=== PATIENT | female | born 1995 | race Caucasian/White ===

== ENCOUNTER 2024-03-04 08:44 | Emergency (ER) | payer OTHER, SELFPAY ==
[2024-03-04] VITALS (20 sets, daily range): BP systolic 94–114; BP diastolic 63–88; PULSE 64–89; RESP 14–24; TEMP 36.6–36.9; O2SAT 97–100
--- NOTE | ~2024-03-04 | CT_ITS ---
CTA brain carotid Ordering provider: Chiquis Blank PA-C History: . headache, dizziness . Comparison: March 04, 2024 Technique: CT angiogram head and neck was performed following timed intravenous injection of contrast . Thin slice axial images and reformatted coronal images were obtained. Three dimensional reformatted images of the brain were also obtained using a [employer] workstation. Radiation reduction technique ut ilized.The dose-length product was 998.68 mGy-cm. 100 mL Omnipaque 350 was given IV. FINDINGS: HEAD: The left transverse venous sinuses demonstrated which may be congenitally absent or thrombosed. --ANTERIOR AND MIDDLE CEREBRAL ARTERIES AND BRANCHES: Normal caliber and contour. --INTERNAL CAROTID ARTERIES: Normal caliber and contour. --BASILAR ARTERY AND BRANCHES: Normal caliber and contour. No atheromatous disease. Dominant left harry tebral artery. Markedly attenuated right vertebral artery. --POSTERIOR CEREBRAL ARTERIES: Normal caliber and contour --POSTERIOR COMMUNICATING ARTERIES: The left continues as posterior cerebral artery. 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 --ANEURYSM: None visualized. --BRAIN: Please refer to report of CT head performed the same day. --BONES AND SUPERFICIAL SOFT TISSUES: Please refer to report of CT head performed the same day. --PARANASAL SINUSES AND MASTOIDS: Please refer to report of CT head done the same day. NECK: --RIGHT CERVICAL CAROTID SYSTEM: Normal caliber and contour. Percent stenosis per NASCET criteria is 0%. No carotid dissection. Otherwise, no significant atheromatous disease or stenosis of the cervica l carotid system. --LEFT CERVICAL CAROTID SYSTEM: Normal caliber and contour. Percent stenosis per NASCET criteria is 0%. No carotid dissection. Otherwise, no significant atheromatous disease or stenosis of the cervical carotid system. --VERTEBRAL ARTERIES: Normal caliber and contour. --VISUALIZED AORTIC ARCH AND BRANCHING VESSELS: Normal caliber and contour. No significant atheromato us disease. --SOFT TISSUES: Bilateral submandibular and parapharyngeal slightly enlarged lymph nodes --CERVICAL SPINE: Normal. IMPRESSION: 1. Normal CTA head and neck. Percent stenosis per NASCET criteria is 0%. 2. The left transverse venous sinus is not demonstrated which may be thrombosed or congenitally abse nt. Reviewed, dictated and finalized at location A. IMPRESSION: 1. Normal CTA head and neck. Percent stenosis per NASCET criteria is 0%. 2. The left transverse venous sinus is not demonstrated which may be thrombose d or congenitally absent.
--- NOTE | ~2024-03-04 | CT_ITS ---
Non-contrast Head CT History: Headache Technique: Axial non-contrast imaging of the brain was performed. Dose reduction technique was used on this scan by utilizing automated exposure control and iterative reconstruction technique. The dose -length product (DLP) was 681.00 mGy-cm. Findings: There is no evidence of intracranial hemorrhage, mass lesion, or acute infarct. Brain par enchyma appears normal. The ventricles and subarachnoid spaces are normal in size. The calvarium ap pears normal. The visualized paranasal sinuses and mastoid air cells are clear. Impression: No significant abnormality seen. Reviewed, dictated and finalized at location . Impression: No significant abnormality seen.
--- NOTE | 2024-03-04 09:26 | ECG_ITS ---
Test Date: 2024-03-04 10:08:58 Measurements Intervals [place] Rate: 70 P: 48 GA: 161 QRS: -8 QRSD: 90 T: 7 QT: 366 QTc: 395 Interpretive Statements SINUS RHYTHM POSSIBLE LEFT ATRIAL ENLARGEMENT INCOMPLETE RIGHT BUNDLE BRANCH BLOCK LOW QRS VOLTAGE IN PRECORDIAL LEADS CONSIDER INFERIOR INFARCT, AGE INDETERMINATE ABNORMAL ECG No previous ECG available for comparison Electronically Signed On 03-04-2024 11:06:27 CDT by Marino Lagos D.O.
--- NOTE | 2024-03-04 09:28 | ED.HA ---
HPI - Headache General Chief Complaint: Headache <SANDEE Mckeon Last Filed: 03/05/24 09:26> Stated Complaint: migraine <SANDEE Mckeon Last Filed: 03/05/24 09:26> Time Seen by Provider: 03/04/24 09:07 <SANDEE Mckeon Last Filed: 03/05/24 09:26> Source: patient <SANDEE Mckeon Last Filed: 03/05/24 09:26> Mode of arrival: ambulatory <SANDEE Mckeon Last Filed: 03/05/24 09:26> Limitations: no limitations <SANDEE Mckeon Last Filed: 03/05/24 09:26> History of Present Illness HPI Narrative: This is a 28-year-old female that presents to the emergency department for a headache. Reports history of migraines. She has been having an ongoing migraine over the last week. Reports she went to the chiropractor to see if that would help which worsened her pain. Her pain is sharp and radiates from the base of her neck and into her head. Reports associated nausea. Reports today she was walking at work and got very dizzy and felt like her legs were tingling. She has not taken anything today for her headache. Reports she was recently prescribed sumatriptan. She tried taking this yesterday with little relief. She is to see a neurologist for her headaches, but has not seen one in years. Denies fevers, vomiting, focal numbness or weakness. <SANDEE Mckeon Last Filed: 03/05/24 09:26> Related Data Allergies/Adverse Reactions: Allergies Allergy/AdvReac Type Severity Reaction Status Date / Time No Known Allergies Allergy Verified 03/04/24 08:45 <SANDEE Mckeon Last Filed: 03/05/24 09:26> Review of Systems Review of Systems: CONSTITUTIONAL: Denies fever EYES: Denies visual changes GASTROINTESTINAL: Denies vomiting NEUROLOGIC: Reports headache. Denies numbness, or weakness. <SANDEE Mckeon Last Filed: 03/05/24 09:26> All systems reviewed & are unremarkable except as noted in HPI and below <Chiquis Blank PA-C - Last Filed: 03/05/24 09:26> [facility] Past Medical History Medical History: Medical History (Updated 03/06/24 @ 00:00 by Costa Fontanarowdy) History of migraine <Chiquis Blank PA-C - Last Filed: 03/05/24 09:26> Social History Social History: Social History (Updated 03/04/24 @ 09:31 by Chiquis Blank PA-C) Smoking status: Never smoker <Chiquis Blank PA-C - Last Filed: 03/05/24 09:26> Exam Narrative: GENERAL: Well-appearing, well-nourished, and in no acute distress. HEAD: Normocephalic, atraumatic. EYES: PERRLA and EOMI. ENT: Nares clear, no rhinorrhea or epistaxis. Mucous membranes moist. Oropharynx without tonsillar hypertrophy exudate or other lesions. Bilateral TMs [place] non-bulging NECK: Supple. No adenopathy or masses. CHEST: Clear to auscultation. No respiratory distress. No wheezes rales or rhonchi HEART: Regular rate and rhythm. No murmur heard. Normal peripheral pulses. EXTREMITIES: Normal range of motion. No edema. Strength equal in bilateral upper and lower extremities (5/5) SKIN: Warm, dry, no rash. NEURO: No focal deficits. Alert and oriented x3. Cranial nerves 2-12 grossly intact PSYCH: Normal mood and affect <Chiquis Blank PA-C - Last Filed: 03/05/24 09:26> Course Course Emergency Course: Patient updated on workup and recommendation for transfer for further evaluation and higher level of care <Chiquis Blank PA-C - Last Filed: 03/05/24 09:26> REHABILITATION ENGINEER/PA Physician Supervision For this patient encounter, I reviewed the REHABILITATION ENGINEER or PA documentation, treatment plan, and medical decision making; and I had [id number] time with this patient. <Casa Bennett MD - Last Filed: 03/10/24 11:14> Consultations Consultation #1: Spoke with Dr. Dubose, neurology at [facility] who accepts patient as transfer. Patient will be a direct admit, average wait time is a couple of days <Chiquis Blank PA-C - Last Filed: 03/05/24 09:26> Date:
[2024-03-04] MEDS: SODIUM CHLORIDE 0.9% IV 1,000 ML 999 ML IV CONT ×2 (09:39→16:04)
[2024-03-04] MEDS: ACETAMINOPHEN 500 MG TABLET 1000 MG PO ×2 (09:39→16:54)
[2024-03-04] MEDS: METOCLOPRAMIDE HCL INJ 10 MG/2 ML VIAL IV PUSH (09:40)
[2024-03-04] MEDS: diphenhydrAMINE HCl INJ 50 MG/ML VIAL 25 MG IV PUSH (09:40)
[2024-03-04 10:11] LABS: Basophils Absolute Auto 0.1 K/mm3 (0.0-0.1); Basophils Percent Auto 0.5 % (0.2-1.2); Eosinophils Absolute Auto 0.2 K/mm3 (0-0.3); Eosinophils Percent Auto 1.9 % (0-4.4); Hematocrit 45.7 % (37.0-47.0); Hemoglobin 15.7 g/dL (12.0-15.0); Immature Granulocyte Absolute 0.02 K/mm3 (0.00-0.031); Immature Granulocyte Percent A 0.2 % (0-0.5); Lymphocytes Percent Auto 31.9 % (18.3-44.2); Mean Corpuscular HGB Conc 34.4 g/dl (32-36); Mean Corpuscular Hemoglobin 31.7 pg (26-34); Mean Corpuscular Volume 92.1 fl (80-100); Mean Platelet Volume 10.2 fl (7.4-10.4); Monocytes Absolute Auto 0.6 K/mm3 (0.1-0.6); Monocytes Percent Auto 6.8 % (2.6-8.5); Neutrophils Absolute Auto 5.5 K/mm3 (1.3-6.7); Neutrophils Percent Auto 58.7 % (45.5-73.1); Platelet Count Result 274 k/mm3 (150-375); Red Blood Count 4.96 M/mm3 (4.2-5.4); Red Cell Distribution Width 12.4 % (11.5-14.5); White Blood Count 9.4 K/mm3 (4.5-10.0)
[2024-03-04 10:20] LABS: Anion Gap 9 mmol/L (4-12); Blood Urea Nitrogen 20 mg/dL (7-17); Calcium 9.1 mg/dL (8.4-10.2); Carbon Dioxide 26 mmol/L (22-30); Chloride 104 mmol/L (98-107); Estimated CRCL calculation 88 ml/min; Estimated Glomerular Filt Rate > 60; Glucose 99 mg/dL (65-110); Sodium 139 mmol/L (137-145)
--- NOTE | 2024-03-04 14:06 | PC.NURSE ---
Reg diet lunch tray ordered
--- NOTE | 2024-03-04 14:20 | PC.NURSE ---
lunch tray delivered to patient
[2024-03-04 14:30] LABS: BEDSIDEPREGUCG Negative (Negative)
--- NOTE | 2024-03-04 15:37 | PC.NURSE ---
attempted to call report at [phone] to Micaela but she declined and said she would need to call me back at her connivence
== END 2024-03-04 17:26 | disposition short-term general hospital (02) ==
PROVIDERS: Emergency Provider Physician Assistant; PCP Family Medicine
DX: R51.9 Headache, unspecified (principal); G08 Intracranial and intraspinal phlebitis and thrombophlebitis; I45.10 Unspecified right bundle-branch block; R94.31 Abnormal electrocardiogram [ECG] [EKG]
CPT/HCPCS: 36415; 70450; 70496; 70498; 80048; 81025; 85025; 93005; 96361; 96374; 96375; 99285; A9270; J1200; J2765; J7030; Q9967

== ENCOUNTER 2024-10-31 09:19 | Observation (INO) | payer OTHER, SELFPAY ==
--- OUTSIDE RECORDS SUMMARY | 2024-10-31 09:26 | XMS_ITS | Continuity of Care Document ---
Author Organization [facility] [place] Address [address] [place] [address] Care Team Providers Care Agile Project Manager Name Role Phone AV LEIGHANN Primary Care Provider Assessment Encounter Date Assessment Date Assessment LastModified by Organization Details LastModified Time 10/30/2024 10/30/2024 Patient is __20_weeks . Discussed plan. Not available 10/30/2024 13:09:52 Plan of Treatment Reminders Order Date Submit Date Provider Last Modified By Organization Details Last Modified Time Details Appointments U/S OB GROWTH 2024 01:00P M ULTRASOUND Not available Not available Not available OB ROUTINE 2024 01:30P M Edilia Robles CNM Not available Not available Not available Lab None recorde d. Referral None recorde d. Procedures None recorde d. Surgeries None recorde d. Imaging None recorde d. Medication Orders None recorde d. Patient TargetsNo targets recorded. Patient InstructionsNo instructions recorded. Reason for Referral None Reported. Results Created Date Observation Date Name Description Value Unit Range Abnormal Flag Note LastModifiedBy Organization Detail LastModifiedTime 09/04/1909/03/2024 US, obste tric, nucha l trans lucen cy No observ ation record ed. [email or web address] [place] [address], [place], [address], 09/03/2024 18:03:46 09/04/19 25 09/03/2024 US, obste tric, follo w-up No observ ation record ed. [email or web address] [address], [place], [address], 09/05/2024 20:01:35 09/24/19 25 09/16/2024 US, obste tric, follo w-up No observ ation record ed. [facility] [address], [place], [address], 10/16/2024 15:22:26 10/31/19 25 10/30/2024 US, obste tric, 2nd or 3rd trime ster No observ ation record ed. [email or web address] [place] [address], [place], [address], 10/30/2024 17:27:13 10/31/19 25 10/30/2024 US, obste tric, 2nd or 3rd trime ster No observ ation record ed. [email or web address] [place] [address], [place], [address], 10/30/2024 21:08:09 Result Notes None recorded. Problems Name Problem SNOMED Code Status Onset Date Resolution Date Notes Provider Name and Address Organization Details Recorded Time Factor V Leiden mutation 216390625 Active Hx of migraine vs thromboti c stroke, unclear from patient hx. Not on blood thinners. Does not follow with neurology . - bASA and MFM referral faxed referral [facility] 09/04 Anatomy scan MW and 24 week us and echo with Britta [facility] Cyndy mays, [facility] 5 15:22:14 Bipolar disorder 96978427 Active 2024 sees psychiatr ist [place] therapist ; was previousl y on lamictal and buspar LAY SOLANO MD [address], [place], [address], [place] [facility] 5 09:52:14 54623346 Active 2024 EDU Pearson null, [facility] 5 17:03:05 Factor V Leiden mutation [id number] Active Hx of migraine vs thromboti c stroke, unclear from patient hx. Not on blood thinners. Does not follow with neurology . - bASA and MFM referral faxed referral Yodit DEVLIN 09/04 Anatomy scan [facility] and 24 week us and echo with Britta DEVLIN Cyndy Dinh null, [facility] 5 15:22:14 Bipolar I disorder 010688810 Active self weaned lamictal and buspar prior to following with psych and counselor LAY SOLANO MD [address], [place], [address], [facility] 5 17:27:17 Mixed anxiety and depressiv e disorder 179024207 Active 2024 Jordana Zacarias [facility], [facility] 5 13:11:43 Mixed anxiety and depressiv e disorder 390151051 Active 2024 Jordana Zacarias [facility], [facility] 5 13:11:43 Problem Notes None recorded. Procedures Surgical History Date Name Laterality Status Provider Name and Address Organization Details Recorded Time 03/03/20 Control Implant Removal completed JASMIN Gonsales- [address], [place], [address], [facility] 03/03/2022 15:43:35 09/17/19 22 Date of Last Pap Smear completed Drea Raya [facility] 03/01/2022 15:01:15 06/05/19 Tonsillectomy completed Jordana Zacarias [facility] 10/30/2024 12:36:09 Imaging Results None recorded. Procedure Notes None recorded. Medical Equipment None Reported. Allergies No known drug allergies Medications Name Sig Start Date Stop Date Status Note LastModified by Organization Details LastModified Time buspirone 5 mg tablet TAKE 1 TABLET BY MOUTH TWICE DAILY 03/01 completed Not Available Not Available Not Available bupropion HCl SR 150 mg tablet,12 hr sustained-r elease TAKE 1 TABLET BY MOUTH EVERY DAY 08/02 completed Not Available Not Available Not Available venlafaxine ER 75 mg capsule,ext ended release 24 hr TAKE 1 CAPSULE BY MOUTH EVERY DAY WITH FOOD 01/25 completed Not Available Not Available Not Available lamotrigine 200 mg tablet TAKE 1 TABLET BY MOUTH TWICE DAILY 08/02 completed Not Available Not Available Not Available trazodone 50 mg tablet TAKE 1 TABLET BY MOUTH EVERY DAY AT BEDTIME 08/02 completed Not Available Not Available Not Available fluconazole 150 mg tablet TAKE 1 TABLET BY MOUTH TODAY. REPEAT IN 72 HOURS 03/26 completed Not Available Not Available Not Available prochlorper azine maleate 5 mg tablet 03/26 completed Not Available Not Available Not Available fluconazole 200 mg tablet Take 1 tablet PO every other day x 3 doses. 08/02 completed Not Available Not Available Not Available metronidazo le 0.75 % (37.5 mg/5 gram) vaginal gel INSERT 1 APPLICATO RFUL VAGINALLY EVERY DAY AT BEDTIME FOR 5 DAYS 03/26 completed Not Available Not Available Not Available ondansetron HCl 4 mg tablet TAKE 1 TABLET BY MOUTH EVERY 6 HOURS NEEDED FOR NAUSEA 03/26 completed Not Available Not Available Not Available terconazole 0.8 % vaginal cream INSERT 1 APPLICATO RFUL VAGINALLY EVERY DAY AT BEDTIME FOR 3 DAYS 01/25 completed Not Available Not Available Not Available venlafaxine ER 150 mg capsule,ext ended release 24 hr TAKE 1 CAPSULE BY MOUTH EVERY DAY 09/16 completed Not Available Not Available Not Available sumatriptan 50 mg tablet 03/26 completed Not Available Not Available Not Available metronidazo le 500 mg tablet TAKE 1 TABLET BY MOUTH EVERY 12 HOURS FOR 7 DAYS 01/25 completed Not Available Not Available Not Available acetaminoph en 500 mg tablet 03/26 completed Not Available Not Available Not Available triamcinolo ne acetonide 0.1 % topical cream APPLY TO AFFECTED AREA TWICE DAILY NEEDED 08/02 completed Not Available Not Available Not Available nystatin-tr iamcinolone 100,000 unit/gram-0 .1 % topical ointment APPLY TO THE AFFECTED AREA(S) BY TOPICAL ROUTE 2 TIMES PER DAY PRN 08/02 completed Not Available Not Available Not Available lorazepam 0.5 mg tablet TAKE 1 TABLET BY MOUTH AT BEDTIME FOR SLEEP 01/25 completed Not Available Not Available Not Available trazodone 100 mg tablet TAKE 1 TABLET BY MOUTH AT BEDTIME 08/12 completed Not Available Not Available Not Available Lamictal 25 mg tablet 1 tablet every other day x 2 weeks then daily x 2 weeks then will increase at next visit 2024 active Not Available Not Available Not Avai lable buspirone 10 mg tablet TAKE 1 TABLET BY MOUTH TWICE DAILY 08/02 completed Not Available Not Available Not Available ibuprofen 400 mg tablet 03/26 completed Not Available Not Available Not Available perphenazin e 4 mg tablet TAKE 1 TABLET BY MOUTH TWICE DAILY 01/25 completed Not Available Not Available Not Available letrozole 2.5 mg tablet Take 1 tablet every day by oral route for 5 days. 08/12 completed Not Available Not Available Not Available ondansetron 4 mg disintegrat ing tablet Place 2 tablets twice a day by transling ual route as needed. 10/01 completed Not Available Not Available Not Available lamotrigine 100 mg tablet TAKE 1/2 TABLET BY MOUTH TWICE DAILY FOR 4 DAYS THEN INCREASE TO 1 TABLET TWICE DAILY 08/02 completed Not Available Not Available Not Available buspirone 15 mg tablet TAKE 1 TABLET BY MOUTH TWICE DAILY 01/25 completed Not Available Not Available Not Available hydroxyzine pamoate 25 mg capsule TAKE 1 CAPSULE BY MOUTH TWICE DAILY NEEDED FOR ANXIETY 09/16 completed Not Available Not Available Not Available Trazodone 50 mg tablet 08/02 completed Not Available Not Available Not Available aripiprazol e 5 mg tablet TAKE 1 TABLET BY MOUTH EVERY DAY 08/02 completed Not Available Not Available Not Available buspirone active Not Available Not Inge ilable Not Available aripiprazol e 2 mg tablet TAKE 1 TABLET BY MOUTH EVERY DAY 01/25 completed Not Available Not Available Not Available Abilify 9.75 mg/1.3 mL intramuscul ar solution 01/25 completed Not Available Not Available Not Available lurasidone 40 mg tablet 01/25 completed Not Available Not Available Not Available Vitals Date Recorded Body height Body mass index (BMI) Body weight Systolic blood pressure Diastolic blood pressure Provider Name and Address Organization Details Last Updated DateTime 10/30/2024 163.83 cm 32.6 kg/m2 69203.33 g 119 mm[Hg] 85 mm[Hg] Jordana Reecetz [facility] 12:34:39 Social History Question Answer Notes LastModified by Organizat ion Details LastModified Time Tobacco Smoking Status Never Smoker Carol Orozco null, [facility] 08/02/2023 16:03:07 Do You Have An Advance Directive? No Information n ot available 09/16/2021 If You Are , What Was Your Level Of Alcohol Consumption Prior To ? Occasional [email or web address] Information not available 10/30/2024 How Many Years Have You Consumed Alcohol? 8 Information not available 09/16/2021 Are You Blind Or Do You Have Difficulty Seeing? No Information n ot available 09/16/2021 What Is Your Level Of Caffeine Consumption? Occasional Information not available 09/16/2021 How Much Tobacco Do You Chew? None Information not available 09/16/2021 In The 14 Days Before Symptom Onset, Have You Had Close Contact With A Laboratory-confirm ed COVID-19 While That Case Was Ill? No Information n ot available 09/16/2021 In The 14 Days Before Symptom Onset, Have You Had Close Contact With A Person Who Is Under Investigation For COVID-19 While That Person Was Ill? No Information not available 09/16/2021 Have You Been To An Area Known To Be High Risk For COVID-19? No Information not available 09/16/2021 Are You Deaf Or Do You Have Serious Difficulty Hearing? No Information not available 09/16/2021 What Type Of Diet Are You Following? REGULAR Information n ot available 09/16/2021 What Is The Highest Grade Or Level Of School You Have Completed Or The Highest Degree You Have Received? [id number] Information not available 09/16/2021 Are There Any Guns Present In Your Home? Yes Information not available 09/16/2021 Do You Use Protection During Sex? No Information not available 09/16/2021 Do You Use Your Seat Belt Or Car Seat Routinely? Yes Information not available 09/16/2021 Do You Have Smoke And Carbon Monoxide Detectors In Your Home? Yes Information not available 09/16/2021 How Much Tobacco Do You Smoke? No Information not available 09/16/2021 Do You Use Sunscreen Routinely? Yes Information not available 09/16/2021 Have You Used IV Drugs? No Information not available 09/16/2021 Do You Have Difficulty Walking Or Climbing Stairs? No [email or web address] Information not available 03/24/2023 Sex: Unknown Functional Status Question Answer Note LastModified by Organizat ion Details LastModified Time Do you use any illicit or recreational drugs? No Information not available 09/16/2021 What is your level of alcohol consumption? None [email or web address] Information not available 10/30/2024 Are you able to walk? YESWOREST Information not available 09/16/2021 Are you able to care for yourself? 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 No [email or web address] Information not available 03/24/2023 What is your exercise level? Moderate Information not available 09/16/2021 Mental Status Question Answer Note LastModified by Organization D etails LastModified Time Do you feel stressed (tense, restless, nervous, or anxious, or unable to sleep at night)? [id number] Information not available 09/16/2021 Family History Relationship Description Onset Age of this Age Resolved Age Notes LastModified by Organization Details LastModified Time Father No current problems or disability Not available 09/16 12:52:23 Mother No current problems or disability Not available 09/16 12:52:23 Medical History Condition Response Allergies (Food, seasonal, environmental ) N Other Y Breast Cancer N Drug/Latex Allergies/Reactions N Blood Transfusion N Dermatologic Disorders N Lung Disease N Defects or Inherited Disease Y Breast Problem N Gestational Diabetes N Hematologic disorders Y Anesthesia Complications N History of STI N Deep Vein Thrombosis N Polycystic ovary syndrome N Anxiety Disorder Y Autoimmune disease Y Arthritis N Infertility N Polyps N Acid Reflux (GERD) N History of abnormal pap N Cancer N Stroke N Varicosities N Neurologic/Epilepsy Y Endometriosis N High Cholesterol N Headaches Y Fibromyalgia N Kidney Disease N Heart Problems N Kidney or Bladder Problems N Thyroid Problems N GI Problems N Eating Disorder N Anemia N Art (IVF or FET) N Psychiatric Illness Y Ovarian Cancer N Diabetes N Pulmonary (TB, Asthma) N Hepatitis/Liver Disease N No Past Medical History N Eczema Y Urinary Tract Infection N Abuse/Domestic Violence N Asthma N Trauma/Violence N Depression/ depression Y Heart Disease N Pre-Eclampsia N Hypertension N Osteoporosis N Thrombophilias N Gynecological History Statement/Question Response Date of Last Mammogram Flow Light Date of LMP 06/06/2024 N Was last menstrual period normal Y STIs/STDs N Date of control 11/20/2020 Date of Last Colonoscopy N/A Desired Control Method N/A Abnormal Pap N On BCP's at Conception? N HPV Vaccine N Duration of Flow (days) 5 Current Control Method Are cycles usually normal N Frequency of Cycle (Q days) Sexually Active? Y Menses Monthly N Date of DEXA bone scan Age of first menstrual cycle 13 Date of Last Pap Smear 09/16/2021 Sexual Problems? N LMP Definite N Obstetrics History GPAL:G 1 P 0 0 0 0 Type Value Living 0 Total 1 Past Encounters Encounter ID Performer Location Encounter Start Date Encounter Closed Date Diagnosis/Indication Diagnosis SNOMED-CT Code Diagnosis ICD10 Code Diagnosis Note [id number] Edilia Robles CNM [place] [address],[place] [address] 10/01/2024 12:42:22 10/02/2024 05:42:28 Gestation period, 16 weeks [id number] Z3A.16 [id number] Yimi Moreau MD [place] [address] [place] [address] 10/30/2024 10:48:01 10/30/2024 12:15:37 Ultrasound scan - obstetric 261752005 Z36.3 Z3A.20 [id number] [facility] [address] [place] [address] 10/30/2024 10:48:15 10/30/2024 13:15:42 Gestation period, 20 weeks 87751963 Z3A.20 Health Concerns Section Related Observation LastModified by Organization Detai ls LastModified Time None Recorded Concern Status LastModified by Organization Details LastModified Time None Recorded Payers Encounter Date Sequence Insurance Name Policy Number Policy Connor Covered Member ID Connor Member ID Guarantor Name 10/30/2024 1 [facility] [id number] Reshma Anderson [id number] Reshma Anderson OBGyn Episode Ob Episode Information Episode Created Date Number of Fetuses Patient Bloodtype Patient rh Status Prepregnancy Weight lbs Domestic Partner Domestic Partner Phone Father Name Sap Portal Architect Status 09/04/19 25 1 A Positive 197 OPEN Fetus Data First Name Last Name Admitted to NICU Weight (g) Sex Living Outcome Pediatric Complications Fetus ID Race Codes Race Delivery Type [id number] Problems Problem Notes small placental lakeNIPT low risk no mircodeletion completed pt decline redraw Problem Name Start Date End Date Resolution Snomed Code Not e Mixed anxiety and depressive disorder 10/01/2024 [id number] Bipolar I disorder [id number] self weaned august ictal and buspar prior to pregnancyfollowing with psych and counselor Factor V Leiden mutation [id number] Hx of migraine vs thrombotic stroke, unclear from patient hx. Not on blood thinners. Does not follow with neurology. - bASA and CLAUS referral faxed referral Yodit DEVLIN 4/2Anatomy scan MW and 24 week us and echo with Britta DEVLIN Hema Calculation Initial Hema Date Initial Exam Date Initial Exam Provider Initial Ultrasound Date Last Menstrual Period Date Ultra Sound Weeks Gestation 03/13/2025 08/02/2024 [email or web address] 08/03/2019 06/06/2024 6 Eighteen To Twenty Week Hema Update Ultra Sound Date Fundal Height At Umbil Quickening Date Ultra Sound Latest Weeks Gestation Final Hema Confirmed By Final Hema Confirmed Date Final Hema Date Ultra Sound Latest Days Gestation 0 [email or web address] 09/03/2024 03/13/20 25 0 Pre-milo Flowsheet Flowsheet Date 09/03/2024 Bernal Score Blood Edema Fundus Height Fundus Units Glucose Ketones Leukocytes Nitrite Labor Signs Protein Cervic Dilation Cervic Effacement Cervic Station Type Weight in lbs Pre/Post Dialysis Refused Weight 194.583958509457 BP Diastolic BP Location Tested BP Systolic BP Type 81 L arm 114 standing Fetus Heart Rate Present A Present Fetus Movement Comments Patient presents to [facility] care. Hx of Factor V Leiden. Was found during a workup due to concern for migraine vs thrombotic stroke. 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 No lasting deficiencies. Started bASA at 8 weeks. Also hx of bipolar disorder, not currently on medications. Self-weaned off lamictal and buspar ~6 months ago. Does have psychiatrist and counselor. Mood stable, some anxiety. otherwise uncomplicated. No nausea or cramping. NT upper limit of normal (2.9mm) and possible hypoplastic nasal bone today, desires NIPT. Will draw today with new OB labs. Will send [facility] referral for Factor V Leiden and possible abnormal NT US. RTC 4 weeks for routine care. Flowsheet Date 10/01/2024 Bernal Score Blood Edema Fundus Height Fundus Units Glucose Ketones Leukocytes Nitrite Labor Signs Protein Cervic Dilation Cervic Effacement Cervic Station neg none Type Weight in lbs Pre/Post Dialysis Refused Weight 193.074329769991 BP Diastolic BP Location Tested BP Systolic BP Type 80 116 Fetus Heart Rate Present A 150 Present Fetus Movement A No Comments Patient is having some nause a. has been seeing [facility], declines further testing at this point. having some low days with bipolar, self aware of sxs and worried about low days, feels good today, psychiatrist afraid of giving her meds, will restart lamictal. talked with carolina allen apn about dosing, conferred with dr. moreau. discussed risks of untreated bipolar disorder. if any suicidal thoughts to ED .will start and have follow up with carolina f/u here in 4 weeks or sooner if needed Flowsheet Date 10/30/2024 Bernal Score Blood Edema Fundus Height Fundus Units Glucose Ketones Leukocytes Nitrite Labor Signs Protein Cervic Dilation Cervic Effacement Cervic Station Type Weight in lbs Pre/Post Dialysis Refused BP Diastolic BP Location Tested BP Systolic BP Type Fetus Heart Rate Present Fetus Movement Comments Flowsheet Date 10/30/2024 Bernal Score Blood Edema Fundus Height Fundus Units Glucose Ketones Leukocytes Nitrite Labor Signs Protein Cervic Dilation Cervic Effacement Cervic Station neg none Type Weight in lbs Pre/Post Dialysis Refused Weight 193.610869020812 BP Diastolic BP Location Tested BP Systolic BP Type 85 119 Fetus Heart Rate Present Fetus Movement A Yes Comments Patient states that is havin g some nausea. pt saw mfm, has echo scheduled. declined genetics, [facility] psychiatry, seeing sim allen, has not restarted lamictal yet. +FM f/u 4 weeks with growth Menstrual History Last Menstrual Date Menses Monthly On Bcp Conception Prior Menses Frequency Hcg Plus Date Menarche Onset Age 0106/06/20[birth year] Delivery Information Delivery Date Delivery Type Labor Anesthesia Weeks Gestation Incision Type Labor Labor Length Hrs Delivered By Post Complications Tubal Sterilization Discharge Date Comments Discharge Information Feeding Method Contraceptive Method Maternal HG B and HCT Levels
--- OUTSIDE RECORDS SUMMARY | 2024-10-31 09:26 | XMS_ITS | Continuity of Care Document ---
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 Plan of Treatment Reminders Order Date Submit Date Provider Last Modified By Organization Details Last Modified Time Details Appointments U/S OB GROWTH 2024 01:00P M ULTRASOUND Not available Not available Not available OB ROUTINE 2024 01:30P M Edilia Robles CNM Not available Not available Not available Lab None recorde d. Referral None recorde d. Procedures None recorde d. Surgeries None recorde d. Imaging US, obstetr ic, 2nd or 3rd trimest er 2024 025 [email or web address] [place], [address], [place], [address], 10/30/2024 18:49:12 Medication Orders None recorde d. Patient TargetsNo targets recorded. Patient InstructionsNo instructions recorded. Reason for Referral None Reported. Results Created Date Observation Date Name Description Value Unit Range Abnormal Flag Note LastModifiedBy Organization Detail LastModifiedTime 09/04/1909/03/2024 US, obste tric, nucha l trans lucen cy No observ ation record ed. [email or web address] [place] [address], [place], [address], 09/03/2024 18:03:46 09/04/19 25 09/03/2024 US, obste tric, follo w-up No observ ation record ed. [email or web address] [address], [place], [address], 09/05/2024 20:01:35 09/24/19 25 09/16/2024 US, obste tric, follo w-up No observ ation record ed. [email or web address] [facility] [address], [place], [address], 10/16/2024 15:22:26 10/31/19 25 10/30/2024 US, obste tric, 2nd or 3rd trime ster No observ ation record ed. [email or web address] [place] [address], [place], [address], 10/30/2024 17:27:13 10/31/19 25 10/30/2024 US, obste tric, 2nd or 3rd trime ster No observ ation record ed. [email or web address] [address], [place], [address], 10/30/2024 21:08:09 Result Notes None recorded. Problems Name Problem SNOMED Code Status Onset Date Resolution Date Notes Provider Name and Address Organization Details Recorded Time Factor V Leiden mutation 799814991 Active Hx of migraine vs thromboti c stroke, unclear from patient hx. Not on blood thinners. Does not follow with neurology . - bASA and MFM referral faxed referral [facility] / Anatomy scan MW and 24 week us and echo with Britta [facility] Cyndy mays, [facility] 5 15:22:14 Bipolar disorder 20823139 Active 2024 sees psychiatr ist [place] therapist ; was previousl y on lamictal and buspar LAY SOLANO MD [address], [place], [address], [facility] 5 09:52:14 65099110 Active 2024 EDU mays, [facility] 5 17:03:05 Factor V Leiden mutation 089315152 Active Hx of migraine vs thromboti c stroke, unclear from patient hx. Not on blood thinners. Does not follow with neurology . - bASA and MFM referral faxed referral Yodit DEVLIN 09/04 Anatomy scan [facility] and 24 week us and echo with Britta DEVLIN Cyndy Dinh [facility], [facility] 5 15:22:14 Bipolar I disorder 416111578 Active self weaned lamictal and buspar prior to following with psych and counselor LAY SOLANO MD [address], [place], [address], [facility] 5 17:27:17 Mixed anxiety and depressiv e disorder 667944613 Active 2024 Jordana Zacarias [facility], [facility] 5 13:11:43 Mixed anxiety and depressiv e disorder 570845466 Active 2024 Jordana Zacarias [facility], [facility] 5 13:11:43 Problem Notes None recorded. Procedures Surgical History Date Name Laterality Status Provider Name and Address Organization Details Recorded Time 03/03/20 Control Implant Removal completed JASMIN Gonsales- [address], [place], [address], [facility] 03/03/2022 15:43:35 09/17/19 Date of Last Pap Smear completed Drea Raya [facility] 03/01/2022 15:01:15 06/05/19 Tonsillectomy completed Jordana Zacarias [facility] 10/30/2024 12:36:09 Imaging Results None [...] Updated DateTime 10/30/2024 163.83 cm 32.6 kg/m2 65074.33 g 119 mm[Hg] 85 mm[Hg] Jordana Zacarias [facility] 12:34:39 Social History Question Answer Notes LastModified by Organizat ion Details LastModified Time Tobacco Smoking Status Never Smoker Carol Orozco null, [facility] 08/02/2023 16:03:07 Do You Have An Advance Directive? No Information n ot available 09/16/2021 If You Are , What Was Your Level Of Alcohol Consumption Prior To ? Occasional [email or web address] Information not available 10/30/2024 How Many Years [...] Or The Highest Degree You Have Received? [id number] Information not available 09/16/2021 Are There Any [...] Have Difficulty Walking Or Climbing Stairs? No [email or web address] Information not available 03/24/2023 Sex: Unknown Functional Status Question Answer Note LastModified by Organizat ion Details LastModified Time Do you use any illicit or recreational drugs? No Information not available 09/16/2021 What is your level of alcohol consumption? None Information not available 10/30/2024 Are you able to walk? YESWOREST Information not available 09/16/2021 Are you able to care for yourself? 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 No [email or web address] Information not available 03/24/2023 What is your exercise level? Moderate Information not available 09/16/2021 Mental Status Question Answer Note LastModified by Organization D etails LastModified Time Do you feel stressed (tense, restless, nervous, or anxious, or unable to sleep at night)? [id number] Information not available 09/16/2021 Family History Relationship Description Onset Age of this Age Resolved Age Notes LastModified by Organization Details LastModified Time Father No current problems or disability Not available 09/16 12:52:23 Mother No current problems or disability Not available 09/16 12:52:23 Medical History Condition Response Allergies (Food, seasonal, environmental ) N Other Y Breast Cancer N Drug/Latex Allergies/Reactions N Blood Transfusion N Lung Disease N Dermatologic Disorders N Defects or Inherited Disease Y Breast Problem N Gestational Diabetes N Hematologic disorders Y Anesthesia Complications N History of STI N Deep Vein Thrombosis N Polycystic ovary syndrome N Anxiety Disorder Y Autoimmune disease Y Arthritis N Polyps N Infertility N History of abnormal pap N Acid Reflux (GERD) N Cancer N Varicosities N Stroke N Neurologic/Epilepsy Y Endometriosis N High Cholesterol N Fibromyalgia N Headaches Y Kidney Disease N Heart Problems N Kidney [...] SNOMED-CT Code Diagnosis ICD10 Code Diagnosis Note [id number] Edilia Robles CNM [place] [address] [address] 10/01/2024 12:42:22 10/02/2024 05:42:28 Gestation period, 16 weeks [id number] Z3A.16 [id number] Yimi Moreau MD [place] [address] [address] 10/30/2024 10:48:01 10/30/2024 12:15:37 Ultrasound scan - obstetric [id number] Z36.3 Z3A.20 [id number] Edilia Robles CNM [place] [address] [address] 10/30/2024 10:48:15 10/30/2024 13:15:42 Gestation period, 20 weeks [id number] Z3A.20 Health Concerns Section Related Observation LastModified by Organization Detai ls LastModified Time None Recorded Concern Status LastModified by Organization Details LastModified Time None Recorded Payers Encounter Date Sequence Insurance Name Policy Number Policy Connor Covered Member ID Connor Member ID Guarantor Name 10/30/2024 1 [facility] [id number] Reshma Anderson [id number] Reshma Anderson OBGyn Episode Ob Episode Information Episode Created Date Number of Fetuses Patient Bloodtype Patient rh Status Prepregnancy Weight lbs Domestic Partner Domestic Partner Phone Father Name Big Data Lead Status 09/04/19 25 1 A Positive 197 OPEN Fetus Data First Name Last Name Admitted to NICU Weight (g) Sex Living Outcome Pediatric Complications Fetus ID Race Codes Race Delivery Type [id number] Problems Problem Notes small placental lakeNIPT low risk no mircodeletion completed pt decline redraw Problem Name Start Date End Date Resolution Snomed Code Not e Mixed anxiety and depressive disorder 10/01/2024 [id number] Bipolar I disorder [id number] self weaned august ictal and buspar prior to pregnancyfollowing with psych and counselor Factor V Leiden mutation 592559052 Hx of migraine vs thrombotic stroke, unclear from patient hx. Not on blood thinners. Does not follow with neurology. - bASA and CLAUS referral faxed referral Yodit DEVLIN 4/2Anatomy scan [facility] and 24 week us and echo with Britta DEVLIN Hema Calculation Initial Hema Date Initial Exam Date Initial Exam Provider Initial Ultrasound Date Last Menstrual Period Date Ultra Sound Weeks Gestation 03/13/2025 08/02/2024 [email or web address] 08/03/2019 06/06/2024 6 Eighteen To Twenty Week Hema Update Ultra Sound Date Fundal Height At Umbil Quickening Date Ultra Sound Latest Weeks Gestation Final Hema Confirmed By Final Hema Confirmed Date Final Hema Date Ultra Sound Latest Days Gestation 0 [email or web address] 09/03/2024 03/13/20 25 0 Pre- Flowsheet Flowsheet Date 09/03/2024 Bernal Score Blood Edema Fundus Height Fundus Units Glucose Ketones Leukocytes Nitrite Labor Signs Protein Cervic Dilation Cervic Effacement Cervic Station Type Weight in lbs Pre/Post Dialysis Refused Weight 194.922542041867 BP Diastolic BP Location Tested BP Systolic BP Type 81 L arm 114 standing Fetus Heart Rate Present A Present Fetus Movement Comments Patient presents to [facility] care. Hx of Factor V Leiden. [...] today with new OB labs. Will send [facility] referral for Factor V Leiden and possible abnormal NT US. RTC 4 weeks for routine care. Flowsheet Date 10/01/2024 Bernal Score Blood Edema Fundus Height Fundus Units Glucose Ketones Leukocytes Nitrite Labor Signs Protein Cervic Dilation Cervic Effacement Cervic Station neg none Type Weight in lbs Pre/Post Dialysis Refused Weight 193.682706789320 BP Diastolic BP Location Tested BP Systolic BP Type 80 116 Fetus Heart Rate Present A 150 Present Fetus Movement A No Comments Patient is having some nause a. has been seeing [facility], declines further testing at this point. [...] Weight in lbs Pre/Post Dialysis Refused Weight 193.657349819108 BP Diastolic BP Location Tested BP Systolic BP Type 85 119 Fetus Heart Rate Present Fetus Movement A Yes Comments Patient states that is havin g some nausea. pt saw mfm, has echo scheduled. declined genetics, [facility], seeing sim allen, has not [...]
--- OUTSIDE RECORDS SUMMARY | 2024-10-31 09:26 | XMS_ITS | Data Portability ---
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 Discussed plan. [email or web address] Not available 10/01/2024 18:44:37 10/30/2024 10/30/2024 Patient is __20_weeks . Discussed plan. [email or web address] Not available 10/30/2024 13:09:52 Plan of Treatment Reminders Order Date Submit Date Provider Last Modified By Organization Details Last Modified Time Details Appointments U/S OB GROWTH 2024 01:00P M ULTRASOUND Not available Not available Not available OB ROUTINE 2024 01:30P M Edilia Robles CNM Not available Not available Not available Lab drug screen, urine 2024 025 [email or web address] [facility], [address], [place], [address], 09/03/2024 18:19:43 Referral None recorde d. Procedures None recorde d. Surgeries None recorde d. Imaging US, obstetr ic, 2nd or 3rd trimest er 2024 025 [email or web address] [facility], [address], [place], [address], 10/30/2024 18:49:12 US, obstetr ic, nuchal translu cency 2024 025 [email or web address] [facility], [address], [address], [place], [address], 09/03/2024 22:08:38 Medication Orders None recorde d. Patient TargetsNo targets recorded. Patient InstructionsNo instructions recorded. Reason for Referral None Reported. Results Created Date Observation Date Name Description Value Unit Range Abnormal Flag Note LastModifiedBy Organization Detail LastModifiedTime 09/13/19 25 09/12/2024 [UNIT Y] KATHRYN Mata sickle cell disease/beta -thalassemia /hemoglobino pathies carrier screen NEGATI VE normal Not Available [facility] [address] [facility] [address], [place], [address], 09/12/2024 17:17:49 09/13/19 25 09/12/2024 [UNIT Y] KATHRYN Mata alpha-thalas semia carrier screen NEGATI VE normal Not Available [facility] [address] [facility] [address], [place], [address], 09/12/2024 17:17:49 09/13/19 25 09/12/2024 [UNIT Y] KATHRYN Mata cystic fibrosis carrier screen NEGATI VE normal Not Available [facility] [address] [facility] [address], [place], [address], 09/12/2024 17:17:49 09/13/19 25 09/12/2024 [UNIT Y] KATHRYN Mata spinal muscular atrophy carrier screen NEGATI VE 2 SMN1 copies , SNP not presen t normal Not Available [facility] [address], [place], [address], 09/12/2024 17:17:49 09/13/19 25 09/12/2024 [UNIT Y] KATHRYN Mata for detailed report, see pdf See PDF normal Not Available [facility] [address] [facility] [address], [place], [address], 09/12/2024 17:17:49 09/14/19 25 09/13/2024 [UNIT Y] ANEUP LOIDY NIPT redraw requested? YES abnormal Not Available [facility] [address] [facility], [place], [address], 09/13/2024 03:06:40 09/14/19 25 09/13/2024 [UNIT Y] ANEUP LOIDY NIPT fraction 4.4% normal Not Available [facility] [address] [facility], [place], [address], 09/13/2024 03:06:40 09/14/19 25 09/13/2024 [UNIT Y] ANEUP LOIDY NIPT 22Q11.2 microdeletio n NO CALL abnormal Not Available [facility] [address] [facility] , [place], [address], 09/13/2024 03:06:40 09/14/19 25 09/13/2024 [UNIT Y] ANEUP LOIDY NIPT sex chromosome aneuploidy NOT DETECT ED normal Not Available [facility] [address] [facility] , [place], [address], 09/13/2024 03:06:40 09/14/19 25 09/13/2024 [UNIT Y] ANEUP LOIDY NIPT monosomy X LOW RISK <1 in 10,000 normal Not Available [facility] [address] [facility] , [place], [address], 09/13/2024 03:06:40 09/14/19 25 09/13/2024 [UNIT Y] ANEUP LOIDY NIPT trisomy 13 LOW RISK <1 in 10,000 normal Not Available [facility] [address] [facility] , [place], [address], 09/13/2024 03:06:40 09/14/19 25 09/13/2024 [UNIT Y] ANEUP LOIDY NIPT trisomy 18 LOW RISK <1 in 10,000 normal Not Available [facility] [address] [facility], [place], [address], 09/13/2024 03:06:40 09/14/19 25 09/13/2024 [UNIT Y] ANEUP LOIDY NIPT trisomy 21 LOW RISK <1 in 10,000 normal Not Available [facility] [address] [facility] [address] , [place], [address], 09/13/2024 03:06:40 09/14/19 25 09/13/2024 [UNIT Y] ANEUP LOIDY NIPT sex FEMALE normal Not Available [facility] [address] [facility], [place], [address], 09/13/2024 03:06:40 09/14/19 25 09/13/2024 [UNIT Y] ANEUP LOIDY NIPT gestation SINGLE TON normal Not Available [facility] [address] [facility], [place], [address], 09/13/2024 03:06:40 09/14/19 25 09/13/2024 [UNIT Y] ANEUP LOIDY NIPT for detailed report, see pdf See PDF normal Not Available [facility] [address] [facility], [place], [address], 09/13/2024 03:06:40 09/04/19 25 09/03/2024 CBC W/DIF F WBC 11.4 10'3/ uL 3.5-10 .5 high Not Available [facility] (Lab) [address], [place], [address], 09/04/2024 12:17:20 09/04/19 25 09/03/2024 CBC W/DIF F RBC 4.72 10'6/ uL (based on docume nted legal sex) 3.80-5 .20 Not Available [facility] (Lab) [address], [place], [address], 09/04/2024 12:17:20 09/04/19 25 09/03/2024 CBC W/DIF F HGB 14.1 g/dL (based on docume nted legal sex) 11.6-1 5.4 Not Available [facility] (Lab) [address], [place], [address], 09/04/2024 12:17:20 09/04/19 25 09/03/2024 CBC W/DIF F HCT 42.6 % (based on docume nted legal sex) 34.0-4 5.0 Not Available [facility] (Lab) [address], [place], [address], 09/04/2024 12:17:20 09/04/19 25 09/03/2024 CBC W/DIF F MCV 90.3 fL 80.0-9 9.0 Not Available [facility] (Lab) [address], [place], [address], 09/04/2024 12:17:20 09/04/19 25 09/03/2024 CBC W/DIF F MCH 29.9 pg 27.0-3 4.0 Not Available [facility] (Lab) [address], [place], [address], 09/04/2024 12:17:20 09/04/19 25 09/03/2024 CBC W/DIF F MCHC 33.1 g/dL 32.0-3 5.5 Not Available [facility] (Lab) [address], [place], [address], 09/04/2024 12:17:20 09/04/19 25 09/03/2024 CBC W/DIF F RDW 13.1 % 11.0-1 5.0 Not Available [facility] (Lab) [address], [place], [address], 09/04/2024 12:17:20 09/04/19 25 09/03/2024 CBC W/DIF F plt 304 10'3/ uL 150-40 0 Not Available [facility] (Lab) [address], [place], [address], 09/04/2024 12:17:20 09/04/19 25 09/03/2024 CBC W/DIF F MPV 10.2 fL 8.8-12 .1 Not Available [facility] (Lab) [address], [place], [address], 09/04/2024 12:17:20 09/04/19 25 09/03/2024 CBC W/DIF F neutrophils 64.7 % 34.0-7 3.0 Not Available [facility] (Lab) [address], [place], [address], 09/04/2024 12:17:20 09/04/19 25 09/03/2024 CBC W/DIF F lymphocytes 26.3 % 15.0-5 0.0 Not Available [facility] (Lab) [address], [place], [address], 09/04/2024 12:17:20 09/04/19 25 09/03/2024 CBC W/DIF F monocytes 6.8 % 1.0-15 .0 Not Available [facility] (Lab) [address], [place], [address], 09/04/2024 12:17:20 09/04/19 25 09/03/2024 CBC W/DIF F eosinophils 1.4 % 0.0-8. 0 Not Available [facility] (Lab) [address], [place], [address], 09/04/2024 12:17:20 09/04/19 25 09/03/2024 CBC W/DIF F basophils 0.4 % 0.0-2. 0 Not Available [facility] (Lab) [address], [place], [address], 09/04/2024 12:17:20 09/04/19 25 09/03/2024 CBC W/DIF F immature granulocytes 0.4 % no define d refere nce range Immat ure Granu locyt es (IG) repre sents autom ated enume ratio n of Metam yeloc ytes, Myelo cytes and Promy elocy tuan when IG is < 5%. Blast s are not inclu ded in IG and repor emery separ ately if prese nt. Not Available [facility] (Lab) [address], [place], [address], 09/04/2024 12:17:20 09/04/19 25 09/03/2024 CBC W/DIF F absolute neutrophils 7.3 10'3/ uL 1.5-8. 0 Not Available [facility] (Lab) [address], [place], [address], 09/04/2024 12:17:20 09/04/19 25 09/03/2024 CBC W/DIF F absolute lymphocytes 3.0 10'3/ uL 1.0-4. 0 Not Available [facility] (Lab) [address], [place], [address], 09/04/2024 12:17:20 09/04/19 25 09/03/2024 CBC W/DIF F absolute monocytes 0.8 10'3/ uL 0.2-1. 0 Not Available [facility] (Lab) [address], [place], [address], 09/04/2024 12:17:20 09/04/19 25 09/03/2024 CBC W/DIF F absolute eosinophils 0.2 10'3/ uL 0.0-0. 6 Not Available [facility] (Lab) [address], [place], [address], 09/04/2024 12:17:20 09/04/19 25 09/03/2024 CBC W/DIF F absolute basophils 0.1 10'3/ uL 0.0-0. 3 Not Available [facility] (Lab) [address], [place], [address], 09/04/2024 12:17:20 09/04/19 25 09/03/2024 CBC W/DIF F absolute immature granulocytes 0.1 10'3/ uL 0.00-0 .10 Refer ence range s for nonbi nary/ inter sex or unspe cifie d gende r patie nts have not been estab lishe d. Pleas e refer to the follo wing table for range s estab lishe d for cisge nder patie nts and evalu ate in the clini talya red xt of the indiv idual patie nt: https ://norma zarco book. nm.or g/gen derx Not Available [facility] (Lab) [address], [place], [address], 09/04/2024 12:17:20 09/04/1909/03/2024 HEPAT ITIS B SURFA CE ANTIG EN hepatitis B surface antigen Non-re active non-re active This assay was perfo rmed using [employer] ratio n reage nts and test kits. Value s obtai neisha with other assay metho ds or kits canno t be used inter garcia eably . Not Available [facility] (Lab) [address], [place], [address], 09/04/2024 12:17:20 09/04/1909/03/2024 HIV 1/2 ANTIG EN/AN TIBOD Y, REFLE X CONFI RMATI ON HIV antigen/anti body Nonrea ctive nonrea ctive HIV-1 antig en and HIV-1 /HIV- 2 antib odies were not detec emery. No labor atory evide nce of HIV infec tion. Not Available [facility] (Lab) [address], [place], [address], 09/04/2024 12:17:21 09/04/1909/03/2024 HEPAT ITIS C ANTIB AURA SCREE N, REFLE X TO CONFI RMATI ON hepatitis C antibody Non-re active non-re active Antib odies to HCV Not Detec emery, does not exclu de the possi bilit y of expos ure to HCV. Not Available [facility] (Lab) [address], [place], [address], 09/04/2024 12:17:21 09/04/19 25 09/03/2024 RUBEL LA IGG ANTIB AURA, QUANT rubella antibodies, IgG Reacti ve reacti ve Not Available [facility] (Lab) [address], [place], [address], 09/04/2024 12:17:21 09/04/19 25 09/03/2024 RUBEL LA IGG ANTIB AURA, QUANT rubella antibodies, IgG quant 107.1 IU/mL >=10 Non-r eacti ve (Non- Immun e) <10 IU/mL React maria t (Immu ne) > or = 10 IU/mL Not Available [facility] (Lab) [address], [place], [address], 09/04/2024 12:17:21 09/04/19 25 09/03/2024 TYPE/ RH/SC REEN ABO/Rh type A POS Not Available [facility] (Lab) [address], [place], [address], 09/04/2024 12:17:22 09/04/19 25 09/03/2024 TYPE/ RH/SC REEN antibody screen NEG Not Available [facility] (Lab) [address], [place], [address], 09/04/2024 12:17:22 09/04/19 25 09/03/2024 TYPE/ RH/SC REEN exp date 2024 23:59 Not Available [facility] (Lab) [address] [place], [address], 09/04/2024 12:17:22 09/04/19 25 09/03/2024 HEMOG LOBIN A1C hemoglobin A1C 5.1 % 4.0-5. 6 The [employer] can [employer] i[employer] n recom mends that a prima ry goal of thera christa bowers d be a HBA1C of < 7% and that physi cians sushilaul d reeva luate the treat ment regim en in patie nts with HBA1C value s consi stent ly > 8%. <5.7% Trice l 5.7 - 6.4% Incre ased risk for diabe tuan >=6.5 % Diagn ostic of diabe tuan <7.0% Goal of thera py >8.0% Actio n sugge sted Not Available [facility] (Lab) [address], [place], [address], 09/04/2024 12:17:22 09/04/19 25 09/03/2024 RPR SCREE N, REFLE X TITER /CONF IRMAT ION RPR qualitative Nonrea ctive nonrea ctive Not Available [facility] (Lab) [address], [place], [address], 09/04/2024 12:17:23 09/04/1909/03/2024 CULTU RE: URINE result report SEE RESULT S BELOW Test: Cultu re: Urine Speci men Sourc e: Urine - Clean Catch Speci men Type: Urine Speci men Date: 1722 Resul t Date: 211 Resul t Statu s: Final resul t Abnor mal: No Resul ting Lab: [facility] [address] [facility] [address] Tel: CULTU RE ----- ----- ----- --- No growt h in 1 day (dete ction level of 10,00 0 colon ies / ml.) Not Available [facility] (Lab) [address], [place], [address], 09/05/2024 03:17:28 09/04/1909/03/2024 drug scree n, urine Amphetamines : negati ve Not Available [employer] [facility] [employer] [facility] [address], [place], [address], 09/03/2024 18:16:01 09/04/19 25 09/03/2024 drug scree n, urine Cannabinoids : negati ve Not Available [facility] [address], [place], [address], 09/03/2024 18:16:01 09/04/19 25 09/03/2024 drug scree n, urine Cocaine: negati ve Not Available [facility] [address], [place], [address], 09/03/2024 18:16:01 09/04/19 25 09/03/2024 drug scree n, urine Opiates: negati ve Not Available [facility] [address], [place], [address], 09/03/2024 18:16:01 09/04/19 25 09/03/2024 drug scree n, urine Phenocyclidi ne: negati ve Not Available [facility] [address], [place], [address], 09/03/2024 18:16:01 09/04/19 25 09/03/2024 drug scree n, urine Barbiturates : negati ve Not Available [facility] [address], [place], [address], 09/03/2024 18:16:01 09/04/19 25 09/03/2024 drug scree n, urine Benzodiazepi markell: negati ve Not Available [facility] [address], [place], [address], 09/03/2024 18:16:01 09/04/19 25 09/03/2024 drug scree n, urine Ethanol: negati ve Not Available [facility] [address], [place], [address], 09/03/2024 18:16:01 09/04/19 25 09/03/2024 drug scree n, urine Hallucinogen s: negati ve Not Available [facility] [address], [place], [address], 09/03/2024 18:16:01 09/04/19 25 09/03/2024 drug scree n, urine Inhalants: negati ve Not Available [facility] [address], [place], [address], 09/03/2024 18:16:01 09/04/19 25 09/03/2024 drug scree n, urine Anabolic Steroids: positi ve Not Available [facility] [address], [place], [address], 09/03/2024 18:16:01 09/04/19 25 09/03/2024 US, obste tric, nucha l trans lucen cy No observ ation record ed. [email or web address] [facility] [address], [place], [address], 09/03/2024 18:03:46 09/04/19 25 09/03/2024 US, obste tric, follo w-up No observ ation record ed. Barbara [address], [place], [address], 09/05/2024 20:01:35 09/24/19 25 09/16/2024 US, obste tric, follo w-up No observ ation record ed. [email or web address] [facility] [address], [place], [address], 10/16/2024 15:22:26 10/31/19 25 10/30/2024 US, obste tric, 2nd or 3rd trime ster No observ ation record ed. [email or web address] [facility] [address], [place], [address], 10/30/2024 17:27:13 10/31/19 25 10/30/2024 US, obste tric, 2nd or 3rd trime ster No observ ation record ed. [email or web address] [address], [place], [address], 10/30/2024 21:08:09 Result Notes None recorded. Problems Name Problem SNOMED Code Status Onset Date Resolution Date Notes Provider Name and Address Organization Details Recorded Time Factor V Leiden mutation 292868811 Active Hx of migraine vs thromboti c stroke, unclear from patient hx. Not on blood thinners. Does not follow with neurology . - [facility]ASA [facility] and 24 week us and echo with Britta [facility] Cyndy Dinh null, [facility] 5 15:22:14 Bipolar disorder 27013464 Active 2024 [place] psychiatr ist [place], has therapist ; was previousl y on lamictal and buspar LAY SOLANO MD [address], [place], [address], [facility] 5 09:52:14 69106358 Active 2024 EDU Pearson null, [facility] 5 17:03:05 Factor V Leiden mutation 267083462 Active Hx of migraine vs thromboti c stroke, unclear from patient hx. Not on blood thinners. Does not follow with neurology . - bASA and MFM referral faxed referral [facility] 4/2 Anatomy scan [facility] and 24 week us and echo with Britta [facility] Cyndy Fabrizio null, [facility] 5 15:22:14 Bipolar I disorder 518864650 Active self weaned lamictal and buspar prior to following with psych and counselor LAY SOLANO MD [address], [place], [address], [facility] 5 17:27:17 Mixed anxiety and depressiv e disorder 028089050 Active 2024 Jordana Zacarias null, [facility] 5 13:11:43 Mixed anxiety and depressiv e disorder 232457753 Active 2024 Jordana Zacarias null, [facility] 13:11:43 Problem Notes None recorded. Procedures Surgical History Date Name Laterality Status Provider Name and Address Organization Details Recorded Time 03/03/20 Control Implant Removal completed JASMIN Gonsales- [address], [place], [address], [facility] 03/03/2022 15:43:35 09/17/19 Date of Last Pap Smear completed Drea Raya [facility] 03/01/2022 15:01:15 06/05/19 Tonsillectomy completed Jordana Zacarias [facility] 10/30/2024 12:36:09 Imaging Results None [...] and Address Organization Details Last Updated DateTime 09/03/2024 163.83 cm 32.8 kg/m2 21033.92 g 114 mm[Hg] 81 mm[Hg] EDU Pearson [facility] 16:34:07 Date Recorded Body height Body mass index (BMI) Body weight Systolic blood pressure Diastolic blood pressure Provider Name and Address Organization Details Last Updated DateTime 10/01/2024 163.83 cm 32.6 kg/m2 33729.33 g 116 mm[Hg] 80 mm[Hg] Jordana Zacarias [facility] 13:06:41 Date Recorded Body height Body mass index (BMI) Body weight Systolic blood pressure Diastolic blood pressure Provider Name and Address Organization Details Last Updated DateTime 10/30/2024 163.83 cm 32.6 kg/m2 13821.33 g 119 mm[Hg] 85 mm[Hg] Jordana Zacarias [facility] 12:34:39 Social History Question Answer Notes LastModified by Organizat ion Details LastModified Time Tobacco Smoking Status Never [facility]oker [facility] 08/02/2023 16:03:07 Do You Have An Advance Directive? No Information n ot available 09/16/2021 If You Are , What Was Your Level Of Alcohol Consumption Prior To ? Occasional [email or web address] Information not available 10/30/2024 How Many Years [...] Or The Highest Degree You Have Received? [id number] Information not available 09/16/2021 Are There Any [...] Have Difficulty Walking Or Climbing Stairs? No [email or web address] Information not available 03/24/2023 Sex: Unknown Functional Status Question Answer Note LastModified by Organizat ion Details LastModified Time Do you use any illicit or recreational drugs? No Information not available 09/16/2021 What is your level of alcohol consumption? None [email or web address] Information not available 10/30/2024 Are you able to walk? YESWOREST Information not available 09/16/2021 Are you able to care for yourself? 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 No [email or web address] Information not available 03/24/2023 What is your exercise level? Moderate Information not available 09/16/2021 Mental Status Question Answer Note LastModified by Organization D etails LastModified Time Do you feel stressed (tense, restless, nervous, or anxious, or unable to sleep at night)? [id number] Information not available 09/16/2021 Family History Relationship Description Onset Age of this Age Resolved Age Notes LastModified by Organization Details LastModified Time Father No current problems or disability Not available 09/16 12:52:23 Mother No current problems or disability Not available 09/16 12:52:23 Medical History Condition Response Allergies (Food, seasonal, environmental ) N Other Y Drug/Latex Allergies/Reactions N Breast Cancer N Blood Transfusion N Lung Disease N [...] N Kidney Disease N Heart Problems N Thyroid Problems N Kidney or Bladder Problems N GI Problems N Eating Disorder [...] SNOMED-CT Code Diagnosis ICD10 Code Diagnosis Note [id number] Zahraa Stevens , [facility] [address] [address] 09/16/2021 12:17:21 09/16/2021 13:05:14 Gynecologic examination 24889067 Z01.419 Take Calcium with Vitamin D 1200mg daily if not receiving in daily diet. It is strongly advised to have an annual flu shot and up can obtain at most pharmacies . If you have not had a TDap shot in the last 10 years you should obtain one as well. Discussed with patient & provided with informatio n regarding Gardisil vaccine to prevent the 4 strains for HPV that cause cervical cancer if under age 26. Encourage safe sexual practices, to use condoms and limit partners if not already in a monogamous relationsh ip. Do monthly self breast exams. Have mammogram yearly or every other year depending on family history. BRCA testing is now available for patients with strong genetic history of female cancer. If interested contact the office. Engage in daily exercise of low impact aerobic exercise 45-60 minutes 4-5 times weekly. Avoid tobacco and illicit drugs as well as using moderation with alcohol intake less than 1-2 8 oz beverages daily. This lifestyle behavior pattern will lead to less health conditions and longer life span. If BMI greater than 25 weight watchers or dietary consult advised. Patient received above instructio ns, and questions have been answered. If you have any questions please call or respond to this email. Patient was made aware of the patient portal and may obtain a paper copy of today's plan if desired. Pap sentSTD Screen sentGeneti c Screen discussedC olon Screen naDexa Screen naRoutine Labs UTD PCPNexplan on 11/2019 Vaginitis 84531329 N76.0 Dilfucan sent for possible yeast and a few additional tabs prn use. [id number] Zahraa Stevens [facility] [address],[place] [address] 03/01/2022 14:48:05 03/01/2022 15:11:52 Vaginitis 52769052 N76.0 Suspect BVPreventi on yeast sent as well Counseled on medication R/B's, Most common side effects, & use. All questions were answered to patient satisfacti on. Time spent in visit is a total of 15 mins with at least 50% of visit consisting of counseling and review of plan of care. [id number] Zahraa Stevens [facility] [address],[place] [address] 03/03/2022 15:03:02 03/03/2022 15:44:40 Removal of subcutaneous contraceptive [id number] Z30.46 Removal site was cleansed with betadine and 3cc of lidocaine used for anesthesia . Device was removed in normal fashion without difficulty . Steri stips and pressure bandage placed. RTO PRN [id number] Zahraa Stevens [facility] [address],[place] [address] 03/24/2023 13:40:56 03/24/2023 13:58:35 Vaginitis [id number] N76.0 Suspect yeast.Rx sent Counseled on medication R/B's, Most common side effects, & use. All questions were answered to patient satisfacti on. Time spent in visit is a total of 15 mins with at least 50% of visit consisting of counseling and review of plan of care. [id number] JASMIN Marie [facility] [address] [address] 08/02/2023 15:56:35 08/02/2023 16:27:16 Vaginitis [id number] N76.0 vaginitis/ STI panel sentvulvar care guidelines discussed (water/fin liset to cleanse the vulva, avoid vaginal soaps/wipe s/etc, cotton underwear only)rx sent for BV - r/b/a reviewedRT C for WWE or sooner if needed Time spent in visit is a total of 18 mins with at least 50% of visit consisting of counseling and review of plan of care. Venereal d isease screening [id number] Z11.3 [id number] Edilia Robles CNM [facility] [address] [address] 01/26/2024 11:12:29 01/26/2024 12:21:02 Vaginal discharge [id number] N89.8 [id number] Yimi Moreau MD [facility] [address] [address] 03/26/2024 16:11:54 03/26/2024 17:09:37 Gynecologic examination 46254605 Z01.419 Annual gynecologi talya exam performed. Patient will come back in a year unless there are new symptoms. Suggest Calcium with Vitamin D if not eating in diet. Patient advised to get annual flu shot. Recommend yearly physicals and perform monthly breast exams. Genetic testing is available for patients with family history of cancer. Engage in safe sexual practices, use condoms. Encouraged to have daily exercise. Avoid tobacco and illicit drugs, moderation of alcohol. If BMI greater than 25 dietary consult advised. If you have any questions please call or email. mammogram- n/a colon cancer screening - n/a DEXA scan- n/a Pap smear- UTD (2021 - NILM), will repeat in 2024 per ASCCP guidelines laboratory evaluation - PCP STI testing - declined Irregular periods 527891 07 N92.6 - Pt to continue to track cycles.- We discussed the potential causes of infertilit y and rationale behind testing.- We discussed her reproducti ve potential in the context of her BMI which is 33.1 We reviewed that given her BMI >25 her natural fertility could be improved by even just a 5% wt loss.- The patient is asked to complete diagnostic lab work up today.-- Discussed that pelvic u/s is also recommende d to assess for structural causes of infertilit y - pt requests for lab work results first.- Discussed that patient may want to request that partner get updated semen analysis.- Discussed the fertile time of the cycle and options for tracking ovulation, including ovulation predictor kits and basal body temperatur e.-- Discussed timed intercours e every other day starting on Day 6 of period through to the next period.-- Discussed using LH surge kits, usually accurate and would recommend intercours e that day and the next day, then can wait until next cycle.-- Discussed ovulation induction would be considered only after behavioral interventi ons were implemente d.- Following the return of these test results she is asked to return to the office for further discussion of reproducti ve planning and treatment options- Patient verbalized understand ing of plan of care. [id number] Yimi Moreau MD [facility] [address] [address] 04/03/2024 09:55:35 04/03/2024 10:31:00 Reproductive care management [id number] Z31.9 Discussed results of lab work. Discussed that labs were generally normal and reassuring for fertility chances. Discussed that hematocrit was slightly elevated and human sex hormone binding globulin was low, which could be a result of various reasons including previously elevated androgens/ testostero ne. Recommende d that we repeat these labs in 3 months if unable to conceive by then. Recommende d pelvic ultrasound before proceeding with letrozole as previously discussed. Risks/bene fits/use discussed. Patient to continue tracking cycles and ovulation with LH predictor kits.Patie nt verbalized understand ing. Patient to continue taking PNV daily. [id number] Yimi Moreau MD [facility] [address] [address] 04/04/2024 12:23:46 04/04/2024 12:57:35 Irregular periods 55736683 N92.6 [id number] Yimi Moreau MD [facility] [address],[place] [address] 04/16/2024 16:28:47 04/16/2024 17:12:12 Female infertility 7896217 N97.9 Discussed that pelvic ultrasound results were overall normal with the exception of multiple follicles in bilateral ovaries, which could be indicative of PCOS.Discu ssed medical induction of ovulation using Letrozole. Instructlana rojas discussed: Prescripti on for the letrozole sent which you will take every day starting day 3 of next period and ending on day 7.You should have sex at least every other day starting days 12-18 of cycle.Star t testing after the last day of taking letrozole and keep testing until you get a positive result. A positive OPK indicates your LH levels are on the rise and ovulation will occur in the next 24-36 hours. One refill of Letrozole sent if no occurs during the first round. Pt to call office if no after the first round as we may have you come into office for progestero ne/LH test during second round.Abeba ent verbalized understand ing. [id number] Yimi Moreau MD [facility] [address],[place] [address] 07/24/2024 10:19:54 07/24/2024 10:58:56 History of infertility - female [id number] Z87.42 O26.841 Z3A.01 [id number] LAY SOLANO MD [facility] [address],[place] [address] 08/01/2024 14:50:50 08/01/2024 15:18:39 [id number] LAY SOLANO MD [facility] [address],[place] [address] 08/02/2024 11:04:10 08/02/2024 17:45:20 [id number] LAY SOLANO MD [facility] [address],[place] [address] 08/12/2024 09:27:36 08/12/2024 11:12:50 test positive [id number] Z32.01 1. Exam today within normal limits.2. Ultrasound today confirms GA and viability. EDC 10/9/253. GC/Clamydi a testing and pap smear done: will f/u as indicated. 4. ACOG guidelines and plan of care for reviewed with patient. All questions answered.5 . Return to office at 12 weeks for new OB visit6. Will need new OB labs at next visit.7. Genetic screening: desires. 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 (unclear if congenital ly absent vs thrombosed )- was told she may have factor V Leiden mutation during workup, family hx of factor V- will send referral to [facility] for evaluation and recommenda tions; will start bASA now due to increased risk Bipolar disorder [id number] 4 F31.9 - not currently on medication s- was previously on lamictal and buspar until ~6 months ago when she self DC'd- has psychiatri st and counselor- discussed medication s in as well as need to emphasize maternal mental health during - will continue to monitor mood closely [id number] Yimi Moreau MD [facility] [address],[facility] [place] [address] 09/03/2024 15:43:52 09/03/2024 16:47:12 screening [id number] Z36.82 Z3A.12 [id number] LAY SOLANO MD [facility] [address],[facility] [place] [address] 09/03/2024 15:44:25 09/04/2024 08:11:54 Bipolar I disorder 353903243 F31.9 - self weaned lamictal and buspar prior to - mood stable Factor V L eiden mutation 225118314 D68.51 - will request records from [facility] after concern for absence of L transverse sinus on CTA (unclear if congenital ly absent vs thrombosed )- was told she may have factor V Leiden mutation during workup, family hx of factor V- will send referral to [facility] for evaluation and recommenda tions; will start bASA now due to increased risk Gestation period, 12 weeks 68203947 Z3A.12 Routine an tenatal care 748490111 Z34.91 [id number] Edilia Robles CNM [facility] [address] [address] 10/01/2024 12:42:22 10/02/2024 05:42:28 Gestation period, 16 weeks 08628105 Z3A.16 [id number] Yimi Moreau MD [facility] [address],[facility] [address] 10/30/2024 10:48:01 10/30/2024 12:15:37 Ultrasound scan - obstetric 807580089 Z36.3 Z3A.20 [id number] Edilia Robles [facility] [address],[place] [address] 10/30/2024 10:48:15 10/30/2024 13:15:42 Gestation period, 20 weeks 62101708 Z3A.20 Health Concerns Section Related Observation LastModified by Organization Detai ls LastModified Time None Recorded Concern Status LastModified by Organization Details LastModified Time None Recorded Advance Directives Directive N: Payers Encounter Date Sequence Insurance Name Policy Number Policy Connor Covered Member ID Connor Member ID Guarantor Name 09/03/2024 1 UMR [id number] Reshma K Anderson [id number] Reshma K Anderson 09/03/2024 1 UMR [id number] Reshma K Anderson [id number] Reshma K Anderson 10/01/2024 1 UMR [id number] Reshma K Anderson [id number] Reshma K Anderson 10/30/2024 1 UMR [id number] Reshma K Anderson [id number] Reshma K Anderson 10/30/2024 1 R [id number] Reshma K Anderson [id number] Reshma K Anderson OBGyn Episode Ob Episode Information Episode Created Date Number of Fetuses Patient Bloodtype Patient rh Status Prepregnancy Weight lbs Domestic Partner Domestic Partner Phone Father Name Associate Product Integrity Engineer Status 09/04/19 25 1 A Positive 197 OPEN Fetus Data First Name Last Name Admitted to NICU Weight (g) Sex Living Outcome Pediatric Complications Fetus ID Race Codes Race Delivery Type [id number] Problems Problem Notes small placental lakeNIPT low risk no mircodeletion completed pt decline redraw Problem Name Start Date End Date Resolution Snomed Code Not e Mixed anxiety and depressive disorder 10/01/2024 [id number] Bipolar I disorder [id number] self weaned august ictal and buspar prior to pregnancyfollowing with psych and counselor Factor V Leiden mutation [id number] Hx of migraine vs thrombotic stroke, unclear from patient hx. Not on blood thinners. Does not follow with neurology. - bASA and MFM referral faxed referral Yodit DEVLIN 4/2Anatomy scan MWC and 24 week us and echo with Britta DEVLIN Hema Calculation Initial Hema Date Initial Exam Date Initial Exam Provider Initial Ultrasound Date Last Menstrual Period Date Ultra Sound Weeks Gestation 03/13/2025 08/02/2024 [id number] 08/03/2019 06/06/2024 6 Eighteen To Twenty Week Hema Update Ultra Sound Date Fundal Height At Umbil Quickening Date Ultra Sound Latest Weeks Gestation Final Hema Confirmed By Final Hema Confirmed Date Final Hema Date Ultra Sound Latest Days Gestation 0 [id number] 09/03/2024 03/13/20 25 0 Pre-milo Flowsheet Flowsheet Date 09/03/2024 Bernal Score Blood Edema Fundus Height Fundus Units Glucose Ketones Leukocytes Nitrite Labor Signs Protein Cervic Dilation Cervic Effacement Cervic Station Type Weight in lbs Pre/Post Dialysis Refused Weight 194.501049769610 BP Diastolic BP Location Tested BP Systolic BP Type 81 L arm 114 standing Fetus Heart Rate Present A Present Fetus Movement Comments Patient presents to [facility]. Hx of Factor V Leiden. Was [...] today with new OB labs. Will send [facility] referral for Factor V Leiden and possible abnormal NT US. RTC 4 weeks for routine care. Flowsheet Date 10/01/2024 Bernal Score Blood Edema Fundus Height Fundus Units Glucose Ketones Leukocytes Nitrite Labor Signs Protein Cervic Dilation Cervic Effacement Cervic Station neg none Type Weight in lbs Pre/Post Dialysis Refused Weight 193.332567256511 BP Diastolic BP Location Tested BP Systolic BP Type 80 116 Fetus Heart Rate Present A 150 Present Fetus Movement A No Comments Patient is having some nause a. has been seeing [facility], declines further testing at this point. having [...] Weight in lbs Pre/Post Dialysis Refused Weight 193.154728785129 BP Diastolic BP Location Tested BP Systolic BP Type 85 119 Fetus Heart Rate Present Fetus Movement A Yes Comments Patient states that is havin g some nausea. pt saw [facility], has echo scheduled. declined genetics, [facility] psychiatry, seeing sim allen, has not restarted [...]
[2024-10-31 10:16] LABS: Add Urine Microscopic? NO; Appearance Urine Clear (Clear); Bilirubin Urine Negative (Negative); Blood Urine Negative (Negative); Color Urine Yellow (Yellow); Glucose Urine UA 1+ mg/dL (Negative); Ketones Urine 2+ mg/dL (Negative); Leukocyte Esterase Ur Negative LEU/UL (Negative); Nitrate Urine Negative (Negative); Protein Urine Negative (Negative); Specific Grav Ur 1.018 (1.001-1.035)
[2024-10-31 11:17] VITALS: BMI 33.5
--- NOTE | 2024-11-22 09:36 | PM.OBTRLD ---
OB - Triage/Final Diagnosis Visit Information Comments/Additional reasons for admission: I have assessed the risk for this patient, Reshma Anderson, and determined that she would benefit from observation care. Evaluation Laboratory results: Laboratory Tests 10/31/24 09:56 Urine Color Yellow Urine Appearance Clear Urine pH 7.0 Ur Specific [place] 1.018 Urine Protein Negative Urine Glucose (UA) 1+ H Urine Ketones 2+ H Ur Blood (Man) Negative Urine Nitrate Negative Urine Bilirubin Negative Urine Urobilinogen 1.0 Ur Leukocyte Esterase Negative Final Diagnosis (1) Flank pain: Code(s): R10.9 - Unspecified abdominal pain Status: Acute
== END 2024-10-31 10:48 | disposition home or self-care (01) ==
PROVIDERS: Advanced Practice Midwife; Admitting Provider Obstetrics & Gynecology; PCP Family Medicine; Visit Provider Obstetrics & Gynecology
DX: O26.892 Other specified pregnancy related conditions, second trimester (principal); R10.9 Unspecified abdominal pain; Z3A.21 21 weeks gestation of pregnancy
CPT/HCPCS: 81003; 87086; G0378; G0379

== ENCOUNTER 2025-03-07 00:01 | Inpatient (IN) | payer OTHER, SELFPAY ==
[2025-03-07] VITALS (196 sets, daily range): BP systolic 94–223; BP diastolic 54–155; PULSE 47–242; RESP 16; TEMP 36.3–38.2; O2SAT 83–100; BMI 35.6
[2025-03-07] MEDS: LACTATED RINGERS 1,000 ML 125 ML IV CONT ×2 (00:30→06:52)
[2025-03-07] MEDS: AMPICILLIN SODIUM 2 GM in SODIUM CHLORIDE 0.9% IV 100 ML 200 ML IVPB (00:30)
[2025-03-07 00:32] LABS: Hematocrit 35.6 % (37.0-47.0); Hemoglobin 11.6 g/dL (12.0-15.0); Immature Granulocyte Percent A 0.4 % (0-0.5); Lymphocytes Absolute Auto 2.78 K/mm3 (0.9-3.2); Mean Corpuscular HGB Conc 32.6 g/dl (32-36); Mean Corpuscular Hemoglobin 25.6 pg (26-34); Mean Corpuscular Volume 78.4 fl (80-100); Nucleated Red Blood Cells Absolute Auto 0.000 K/mm3 (0.0-0.012); Nucleated Red Blood Cells Perc 0.0 % (0.0-0.2); Platelet Count Result 286 k/mm3 (150-375); Red Blood Count 4.54 M/mm3 (4.2-5.4); White Blood Count 11.3 K/mm3 (4.5-10.0)
[2025-03-07 01:11] LABS: Syphilis IgG/IgM Antibody Non-Reactive (Nonreactive)
--- NOTE | 2025-03-07 01:47 | LDADM ---
This patient, Reshma Anderson, was admitted to Labor/Delivery/Recovery 103 on 03/07/25 at 00:01. Plans for labor, pain management and were discussed with patient. Patient/family oriented to hospital policies and general routines including ID bracelet, bed and alarms, visiting hours, pain management, procedures, bathroom and other care routines, personal items, smoking policy, room service/diet and guest tray routines, security routines, and visiting hours. Patient/Family are encouraged to report perceived risks to care and to ask questions if they do not understand what they are told or what they should do. See OBIX for further documentation.
[2025-03-07 01:50] LABS: OBXCEM ROM Plus Positive (Negative)
--- NOTE | 2025-03-07 04:36 | WPDANESEPP ---
Anes - Eval Pre Procedure Procedure: Labor epidural Date/Time: 03/07/25 04:36 Surgeon: Jovanni Preop Diagnosis: Abdominal pain with contractions Pre Op Diagnosis: IOL Patient Data Age: 29 Gender: F Height: 1.63 m Weight: 94.1 kg Last Vital Signs Temp 98.2 F 03/07/25 03:15 Pulse 101 H 03/07/25 04:30 BP 121/88 03/07/25 04:30 Pulse Ox 100 03/07/25 04:34 O2 Del Method Room Air 03/07/25 00:22 Allergies Allergy/AdvReac Type Severity Reaction Status Date / Time No Known Allergies Allergy Verified 03/07/25 01:43 Home Medications ?Medication ?Instructions ?Recorded ?Confirmed ?Type aspirin 81 mg capsule 81 mg PO DAILY 02/12/25 03/07/25 History Laboratory Tests 03/07/25 03/07/25 00:27 01:26 WBC 11.3 H K/mm3 (4.5-10.0) RBC 4.54 M/mm3 (4.2-5.4) Hgb 11.6 L D g/dL (12.0-15.0) Hct 35.6 L % (37.0-47.0) MCV 78.4 L fl (80-100) MCH 25.6 L pg (26-34) MCHC 32.6 g/dl (32-36) RDW 14.1 % (11.5-14.5) Plt Count 286 k/mm3 (150-375) MPV 10.7 H fl (7.4-10.4) Immature Gran % (Auto) 0.4 % (0-0.5) Neut % (Auto) 69.2 % (45.5-73.1) Lymph % (Auto) 24.6 % (18.3-44.2) [place] % (Auto) 5.0 % (2.6-8.5) Eos % (Auto) 0.5 % (0-4.4) Baso % (Auto) 0.3 % (0.2-1.2) Lymph # (Auto) 2.78 K/mm3 (0.9-3.2) [place] # (Auto) 0.6 K/mm3 (0.1-0.6) Eos # (Auto) 0.1 K/mm3 (0-0.3) Baso # (Auto) 0.0 K/mm3 (0.0-0.1) Abs Immat Gran (auto) 0.05 H K/mm3 (0.00-0.031) Absolute Neuts (auto) 7.8 H K/mm3 (1.3-6.7) Absolute Nucleated RBC 0.000 K/mm3 (0.0-0.012) Nucleated RBC % 0.0 % (0.0-0.2) Membranes Rupture Rom plus positive (Negative) Syphilis IgG/IgM Ab Non-reactive (Nonreactive) Blood Type A Positive Antibody Screen Negative : gestational age HCG: positive Patient hx anesthesia problems: none Family hx anesthesia problems: none Results Review: All pre-operative results and documents have been reviewed as part of the pre-operative evaluation. COUNTS INCLUDE 234 BEDS AT THE [facility] Past Medical History Medical History Anxiety and depression Factor 5 Leiden mutation, heterozygous History of migraine Family History Family History Other Congestive heart failure Diabetes mellitus Hypertension Liver failure Social History Social History Smoking status: Never smoker Substance use: never Lack of Transportation: No Lack of Food: Never True Current Housing: I Have Housing Concerned About Future Housing: No Difficulty Paying Gas/Electric Bills: No Difficulty Paying for Meds: No Currently Unemployed: No Education: Associate Degree Difficulty w/ Childcare or Family Care: No Spiritual care concerns: No Exam Day of Procedure 03/07/25 04:36 Patient weight: obese Heart: regular rate and rhythm
[2025-03-07] MEDS: AMPICILLIN SODIUM 1 GM in SODIUM CHLORIDE 0.9% IV 50 ML 100 ML IVPB ×2 (05:11→09:00)
[2025-03-07] MEDS: ACETAMINOPHEN 325 MG TABLET 650 MG PO ×2 (07:40→17:50)
[2025-03-07] MEDS: OXYTOCIN 30 UNITS/NS 500 ML 30 UNITS/500 ML BAG IV CONT (07:43)
--- NOTE | 2025-03-07 07:59 | WPDOBADMIT ---
Obstetrics - Admit Note Admission Note: record reviewed. No pertinent additions to the history and/or any subsequent changes in the physical findings that are not consistent with the expected course of the were found. Additions to the history and/or subsequent changes in the physical findings follow. Admit for IOL. Hx bipolar disorder. Sterile vag exam /. IUPC placed. Pt comfortable with epidural. Anticipate vaginal delivery.
[2025-03-07] MEDS: ACETAMINOPHEN 500 MG TABLET 1000 MG PO (12:16)
[2025-03-07] MEDS: ONDANSETRON INJ 4 MG/2 ML VIAL IV PUSH (12:35)
--- NOTE | 2025-03-07 12:43 | PM.OBPRVD ---
OB - Vaginal Delivery Note Procedure Delivery date: 03/07/25 Induction method: Per Misoprostol Protocol and Per Pitocin Protocol Delivery augmentation: Pitocin Delivery monitor: External FHT and Internal Uterine Route of delivery: Laceration Description: Labial (Hemostatic) and Superficial Specimen: Yes Quantitative Blood Loss (ml): 175 Anesthesia type: Epidural Disposition: Floor Deale Baby Date of : 03/07/25 Time of : 12:29 Gestational Age by Date: 39 gender: Female presentation: vertex position: Right Occiput Posterior Placenta delivery description: Spontaneous Cord Vessel Description: 3 Vessels, Nuchal Cord (x1) and Loose
[2025-03-07] MEDS: OXYTOCIN 30 UNITS/NS 500 ML 30 UNITS/500 ML BAG 125 UNITS IV CONT (13:01)
--- NOTE | 2025-03-07 13:02 | S_PTH ---
PATIENT: Reshma Anderson LOC: ANHOB2 U#:[id number] AGE/SX: 29/F ROOM: 280 RE03/07/[address]: Yimi Slater MD : 1995 BED: 00 DIS: 03/09/2025 SPEC #: [id number] RECD: 03/10/25 09:02 STATUS: CHANDLER REEran #: [id number] NIMISHA: 03/07/25 13:[address]: Edilia Robles DEPT: [facility] Surgical RECD BY: Sophie Steele ENTERED: 03/10/25 09:02 SP TYPE: Surgical OTHR DR: MD Willy Herring, Tissues: A - Placenta Procedures: Hematoxylin and Eosin Stain Gross and Microscopic Level 5
--- NOTE | 2025-03-07 15:18 | OBPPTRN ---
Patient transferred to post room #280 via wheelchair. Support person- spouse Casa present. Oriented to unit, room, information board, rooming in, admission packet and security measures. Patient verbalizes understanding.
[2025-03-08] MEDS: IBUPROFEN 600 MG TABLET PO ×3 (00:40→19:23)
[2025-03-08] MEDS: ACETAMINOPHEN 325 MG TABLET 650 MG PO ×3 (00:40→19:23)
[2025-03-08 04:31] LABS: Hematocrit 33.5 % (37.0-47.0); Hemoglobin 10.6 g/dL (12.0-15.0)
[2025-03-08 05:45] VITALS: BP 119/78; PULSE 87; RESP 16; TEMP 37.1; O2SAT 97
[2025-03-08 07:26] VITALS: BP 103/70; PULSE 96; RESP 18; TEMP 36.7; O2SAT 99
[2025-03-08] MEDS: DOCUSATE SODIUM 100 MG CAPSULE PO ×2 (07:40→17:28)
[2025-03-08] MEDS: WITCH HAZEL 40 PADS 1 PAD TOPICAL (07:40)
--- NOTE | 2025-03-08 08:59 | P.PNOB_ITS ---
OB - PN: Subj Subjective Date/time seen: 03/08/25 08:59 Patient comments: no complaints, pain well controlled, incisional pain, tolerating diet and flatus present OB - PN: Obj Data Labs 03/08/25 03:50 Labs: Laboratory Results - last 24 hr 03/08/25 03:50 Hgb 10.6 L Hct 33.5 L OB - PN A/P Plan day: 1 Plan: routine care Comments: No problems, routine care Time Spent With Patient Time: Total time spent is greater than 50% in coordination of care (as documented) at patient's floor/unit and/or counseling patient: Exam 2 Const: General: comfortable, no acute distress and alert Resp: Effort & Inspection: normal respiratory effort Auscultation: no crackles, no rales and no rhonchi Cardio: Rate: regular rate Heart sounds: no click, no murmurs and no rubs GI: Inspection: non-distended GI Palp: No Tenderness to palpation present (GI) Auscultation: normal bowel sounds Other: Incision - CDI Extrem: General: normal to inspection, no pedal edema and no calf tenderness
[2025-03-08] MEDS: ENOXAPARIN 40 MG/0.4 ML SYRINGE SUB-Q (09:00)
[2025-03-08] MEDS: MULTIVIT/MIN/PREN/FOL AC/IRON TABLET 1 TAB PO (09:00)
--- NOTE | 2025-03-08 10:50 | PC.NURSE ---
Introductions were made, then consulted with patient to assess needs related to . Discussed with mother her?plans to feed?her and the?experience so far. Baby was sleepy last night and we reviewed that sleepiness is normal in the first 24 hours of life. Mom says baby just latched and suckled for a whole feeding and she felt that it went well. Resources provided for inpatient and outpatient services with the feeding sheet, mom/baby guide and name written on the communication board. Encouraged patient to call for assistance waking baby or latching or any other concerns that arise. Mother voiced understanding of information and will call if there is a request for assistance. Reported to the Primary RN.
[2025-03-08 19:08] VITALS: BP 111/79; PULSE 93; RESP 16; TEMP 36.6; O2SAT 99
--- NOTE | 2025-03-09 08:36 | P.PNOB_ITS ---
OB - PN: Subj Subjective Date/time seen: 03/09/25 08:36 Patient comments: no complaints, pain well controlled and tolerating diet OB - PN: Obj Data Labs 03/08/25 03:50 OB - PN A/P Plan day: 2 Plan: routine care and discharge home Time Spent With Patient Time: Total time spent is greater than 50% in coordination of care (as documented) at patient's floor/unit and/or counseling patient: Exam 2 Const: General: comfortable and no acute distress Resp: Effort & Inspection: normal respiratory effort Auscultation: no rales, no rhonchi and no wheezes Cardio: Rate: regular rate Heart sounds: no click, no murmurs and no rubs GI: GI Palp: Yes Soft to palpation and No Tenderness to palpation present (GI) Auscultation: normal bowel sounds Extrem: General: normal to inspection, no pedal edema and no calf tenderness
--- NOTE | 2025-03-09 08:37 | PM.OBDSVD ---
DS: Admitting Diagnosis Discharge Date 03/09/2025 Admitting Diagnosis Term term DS: Discharge Diagnosis Discharge Diagnosis (1) Term delivered: Code(s): O80 - Encounter for full-term uncomplicated delivery Status: Acute OB - DS: Summary OB Procedures : None OB Procedures Intrapartum: Spontaneous Vag Delivery OB Procedures: : None Peripartum Data Laceration Description: Labial (Hemostatic) and Superficial Time Spent with Patient Time attestation: Total time spent providing and/or coordinating discharge services: DS: Data Data Completed and Pending Pending studies at discharge: Pending at discharge 03/07/25 13:02 Surgical [PTH] Routine Discharge Plan Discharge Consulting providers: Edilia Robles Discharging Clinician: Yimi Slater Patient Disposition: Home Activity: pelvic rest Diet: regular Patient Instructions: Antibiotic Form Patient Language: Paraguayan Stand Alone Forms: General Discharge Information Follow-up/Referrals: Yimi Slater MD [Physician, [employer] INSPECTOR] Discharge Medications: Continued aspirin 81 mg capsule 81 mg PO DAILY Date of admission: 03/07/25 00:01 Primary Care Provider: DarnellWilly Admitting Provider: Brian Baig Attending physician on admission: rBian Baig Condition: Stable
[2025-03-09 08:50] VITALS: BP 131/90; PULSE 92; RESP 16; TEMP 36.9; O2SAT 100
[2025-03-09] MEDS: MULTIVIT/MIN/PREN/FOL AC/IRON TABLET 1 TAB PO (08:54)
[2025-03-09] MEDS: DOCUSATE SODIUM 100 MG CAPSULE PO (08:54)
[2025-03-09] MEDS: ENOXAPARIN 40 MG/0.4 ML SYRINGE SUB-Q (08:54)
--- NOTE | 2025-03-09 09:58 | PC.NURSE ---
Patient viewed the discharge video Mother & Baby Care, The First Two Weeks. Patient was given the opportunity and encouraged to ask questions. Patient verbalized understanding of information shared and has been given the mother/baby guide for home reference.
[2025-03-10 11:24] VITALS: BP 134/89; PULSE 94; RESP 18; TEMP 36.7; O2SAT 99
== END 2025-03-09 11:48 | disposition home or self-care (01) | DRG 806 ==
LOC: ANHLDR 00:17 → ANHOB2 03-09 08:43 → ANHLDR 03-11 08:39 → ANHOB2 03-11 08:39
PROVIDERS: Advanced Practice Midwife; Admitting Provider Obstetrics & Gynecology; PCP Family Medicine; Visit Provider Obstetrics & Gynecology
DX: O99.12 Other diseases of the blood and blood-forming organs and certain disorders involving the immune mechanism complicating childbirth (principal); D68.51 Activated protein C resistance; Z37.0 Single live birth; Z3A.39 39 weeks gestation of pregnancy; O69.81X0 Labor and delivery complicated by cord around neck, without compression, not applicable or unspecified; O99.824 Streptococcus B carrier state complicating childbirth; O99.344 Other mental disorders complicating childbirth; F31.9 Bipolar disorder, unspecified; O70.0 First degree perineal laceration during delivery
CPT/HCPCS: 36415; 84112; 85014; 85018; 85025; 86593; 86850; 86900; 86901; 88307; A9270; J0290; J1650; J2405; J2590; J2795; J7120